=== PATIENT | male | born 1930 | race Caucasian/White ===

== ENCOUNTER 2016-12-06 17:45 | Inpatient (IN) | payer MEDICARE ==
[~2016-12-06] VITALS: Ht 175.3 cm; Wt 60.7 kg
[2016-12-06] MEDS ORDERED: ALBUTEROL 0.5% (NEB) 2.5 MG/0.5 ML AMP INH STA (18:21)
--- NOTE | 2016-12-06 18:59 | RADRPT ---
PROCEDURE: XR Chest. CLINICAL INDICATION: Chest pain. TECHNIQUE: Single frontal view. COMPARISON: None. FINDINGS: The lungs are clear. The heart size is normal. There is calcification in the aorta consistent with atherosclerosis. There are very small bilateral pleural effusions. There is no pneumothorax. IMPRESSION: 1. Atherosclerosis. 2. Very small bilateral pleural effusions. 3. Otherwise normal chest radiograph. RPTAT: QQ .Lb Son MD, MD Date Time Electronically viewed and signed by .Lb Son MD, MD on 12/06/2016 18:59 .R/
[2016-12-06 19:21] LABS: MetHgb Venous 0.3 %; Sample Type Blood venous; Venous COHb 0.6 %; Venous Fraction OxyHgb 56.4 %; Venous Total Hemglobin 14.1 g/dl
[2016-12-06] MEDS ORDERED: ACET-2047 PO (19:21)
[2016-12-06] MEDS ORDERED: ACET1TAB40 PO (19:22)
[2016-12-06] MEDS ORDERED: ASCO500C7 PO (19:24)
[2016-12-06] MEDS ORDERED: ATEN50TA PO (19:25)
[2016-12-06] MEDS ORDERED: ASPI-664 PO (19:25)
[2016-12-06] MEDS ORDERED: ATOR10TA65 PO (19:26)
[2016-12-06] MEDS ORDERED: LORA-441 PO (19:27)
[2016-12-06] MEDS ORDERED: WARF3TAB PO (19:28)
[2016-12-06] MEDS ORDERED: FLUO40CA10 PO (19:29)
[2016-12-06] MEDS ORDERED: DIGO125T6 PO (19:29)
[2016-12-06] MEDS ORDERED: HYDR-906 PO (19:29)
[2016-12-06] MEDS ORDERED: FURO-110 PO (19:30)
[2016-12-06] MEDS ORDERED: ALEN70TA30 PO (19:31)
[2016-12-06] MEDS ORDERED: LEVE250T5 PO (19:31)
[2016-12-06] MEDS ORDERED: LISI2.5T59 PO (19:33)
[2016-12-06] MEDS ORDERED: TAMS0.4C2 PO (19:34)
[2016-12-06] MEDS ORDERED: POTA20TA96 PO (19:35)
[2016-12-06] MEDS ORDERED: POLY17PO6 PO (19:35)
[2016-12-06] MEDS ORDERED: MULTI PO (19:36)
[2016-12-06] MEDS ORDERED: PANT40TA3 PO (19:36)
[2016-12-06] MEDS ORDERED: PSYL283P27 PO (19:37)
[2016-12-06 19:41] LABS: ADD SCAN DIFF NO
[2016-12-06 19:55] LABS: PT RATIO 4.5
[2016-12-06 19:56] LABS: ALBUMIN 3.4 g/dl (3.3-4.9); CHLORIDE 99 mmol/L (97-110); PARTIAL THROMBOPLASTIN TIME 47.3 Sec (25.0-35.0); POTASSIUM 3.7 mmol/L (3.5-5.1); SODIUM 141 mmol/L (135-144)
[2016-12-06 19:58] LABS: CREATININE 0.77 mg/dl (0.61-1.24)
[2016-12-06 19:59] LABS: ALANINE AMINOTRANSFERASE 27 IU/L (13-69); ALBUMIN/GLOBULIN RATIO 1.17; ALKALINE PHOSPHATASE 96 IU/L (42-121); ANION GAP 15 (8-16); ASPARTATE AMINO TRANSFERASE 21 IU/L (15-46); BILIRUBIN,INDIRECT 0.7 mg/dl (0-1.1); BILIRUBIN,TOTAL 0.7 mg/dl (0.2-1.3); BLOOD UREA NITROGEN 14 mg/dl (7-20); CALCIUM 8.8 mg/dl (8.4-10.2); CARBON DIOXIDE 31 mmol/L (21-31); GLUCOSE 101 mg/dl (70-220); TOTAL PROTEIN 6.3 g/dl (6.1-8.1)
[2016-12-06 20:02] LABS: BASOPHIL # 0.1 10^3/ul (0.0-0.1); BASOPHILS % 0.3 % (0.0-2.0); EOSINOPHILS # 0.1 10^3/ul (0.0-0.5); EOSINOPHILS % 0.5 % (0.0-7.0); HEMOGLOBIN 12.8 g/dl (14.0-18.0); LYMPHOCYTES # 0.8 10^3/ul (0.8-2.9); LYMPHOCYTES % 4.3 % (15.0-51.0); MEAN CORPUSCULAR HEMOGLOBIN 31.1 pg (29.0-33.0); MEAN CORPUSCULAR HGB CONC 32.8 g/dl (32.0-37.0); MEAN CORPUSCULAR VOLUME 94.7 fl (82.0-101.0); MEAN PLATELET VOLUME 11.3 fl (7.4-10.4); MONOCYTE # 1.1 10^3/ul (0.3-0.9); MONOCYTES % 6.3 % (0.0-11.0); NEUTROPHIL # 15.4 10^3/ul (1.6-7.5); NEUTROPHILS % 88.1 % (39.0-77.0); PLATELET COUNT 290 10^3/UL (140-415); RED BLOOD COUNT 4.12 10^6/ul (4.70-6.10); RED CELL DISTRIBUTION WIDTH 14.2 % (11.5-14.5); WHITE BLOOD COUNT 17.4 10^3/ul (4.8-10.8)
[2016-12-06 20:07] LABS: B-TYPE NATRIURETIC PEPTIDE 4810 PG/ML (0-450)
[2016-12-06 20:15] LABS: INR 6.46
[2016-12-06 20:17] LABS: TROPONIN-I < 0.010 ng/ml (0.00-0.12)
[2016-12-06] MEDS ORDERED: CEFEPIME 1GM/50 ML (PMX) 50 ML IVPB STA (20:24)
[2016-12-06] MEDS ORDERED: VANCOMYCIN 1 GM (PMX) 250 ML IVPB STA (20:24)
[2016-12-06] MEDS ORDERED: SOD CHLORIDE 0.9% 500 ML IV ONE (20:56)
[2016-12-06] MEDS ORDERED: ONDANSETRON 4 MG INJ IV PRN (21:30)
[2016-12-06] MEDS ORDERED: ACETAMINOPHEN 325 MG TAB PO PRN (21:30)
--- NOTE | 2016-12-06 21:53 | ERA ---
ER Documentation Chief Complaint Date/Time DATE: 12/06/16 TIME: 21:43 Chief Complaint Shortness of breath that started today, from SNF HPI 86-year-old male with a history of strokes, A. fib, hypertension, CHF [facility] for shortness of breath that started today. Patient states that under the left side of his ribs, he feels a pressure with associated shortness of breath when he takes a deep breath. He generally feels weak. He has an associated productive cough. He denies associated fever, chest pain, new focal weakness or numbness, leg pain or swelling. ROS All systems reviewed and are negative except as per history of present illness. Medications Home Meds Reported Medications Psyllium Husk/Aspartame (Metamucil Sugar-Free Powder) 283 Gm Powder, 1 GM PO DAILY Y for CONSTIPATION 12/06/16 Multivitamins* (Theragran*) 1 Tab Tab, 1 TAB PO DAILY, TAB 12/06/16 Pantoprazole* (Protonix*) 40 Mg Tablet.dr, 40 MG PO DAILY, TAB 12/06/16 Polyethylene Glycol* (Miralax*) 17 Gm Powd.pack, 17 GM PO DAILY, #30 PACKET 12/06/16 Potassium Chloride* (Potassium Chloride*) 20 Meq Tablet.er, 20 MEQ PO DAILY, TAB.SA 12/06/16 Tamsulosin Hcl* (Tamsulosin Hcl*) 0.4 Mg Cap.er.24h, 0.4 MG PO HS, CAP 12/06/16 Lisinopril* (Lisinopril*) 2.5 Mg Tablet, 2.5 MG PO DAILY, #30 TAB HOLD IF SBP ABOVE 110 OR HR ABOVE 60 12/06/16 Levetiracetam* (Levetiracetam*) 250 Mg Tablet, 250 MG PO BID, TAB 12/06/16 Alendronate Sodium* (Fosamax*) 70 Mg Tablet, 70 MG PO Q7D, #4 TAB ON Sundays12/06/16 Furosemide* (Lasix*) 20 Mg Tablet, 20 MG PO DAILY, TAB 12/06/16 Hydrocodone/Acetaminophen ([place]oco 5-325 Tablet) 1 Each Tablet, 1 EACH PO Q4H WHILE AWAKE Y for MODERATE PAIN LEVEL 4-6, TAB 12/06/16 Fluoxetine Hcl* (Prozac*) 40 Mg Capsule, 40 MG PO DAILY, CAP 12/06/16 Digoxin* (Lanoxin*) 0.125 Mg Tablet, 0.125 MG PO DAILY, TAB HOLD IF HR ABOVE 60 12/06/16 Warfarin Sodium* (Coumadin*) 3 Mg Tablet, 3 MG PO DAILY, TAB 12/06/16 Lorazepam* (Ativan*) 0.5 Mg Tablet, 0.5 MG PO DAILY Y for ANXIETY, #30 TAB 12/06/16 Atorvastatin Calcium (Atorvastatin Calcium) 10 Mg Tablet, 2.5 MG PO QHS, #30 TAB 12/06/16 Aspirin (Low Dose Aspirin) 81 Mg Tablet.dr, 81 MG PO DAILY, #30 TAB 12/06/16 Atenolol* (Atenolol*) 50 Mg Tablet, 50 MG PO DAILY, #30 TAB HOLD FOR SBP ABOVE 110 OR HR ABOVE 60 12/06/16 Ascorbic Acid* (Vitamin C*) 500 Mg Capsule.sa, 500 MG PO DAILY, CAP 12/06/16 Acetaminophen with Codeine (Acetaminophen-Cod #3 Tablet) 1 Each Tablet, 1 TAB PO Q6H Y for SEVERE PAIN LEVEL 7-10, #7 TAB 12/06/16 Acetaminophen* (Acetaminophen*) 650 Mg Tablet, 650 MG PO Q6H Y for PAIN, #30 TAB 12/06/16 Allergies Allergies: Coded Allergies: No Known Allergy (Unverified , 12/06/16) PMhx/Soc History of Surgery: No Anesthesia Reaction: No Hx Neurological Disorder: Yes (Multiple CVAs) Hx Respiratory Disorders: No Hx Cardiac Disorders: Yes (Afib, CHF, HTN) Hx Psychiatric Problems: No Hx Miscellaneous Medical Probl: No Hx Alcohol Use: No Hx Substance Use: No Hx Tobacco Use: Yes Smoking Status: Current every day smoker FmHx Family History: No diabetes Physical Exam Vitals Vital Signs Date Time Temp Pulse Resp B/P Pulse Ox O2 Delivery O2 Flow Rate FiO2 12/06/16 20:25 100 16 116/88 100 Nasal Cannula 2.0 12/06/16 19:48 64 18 105/46 100 Nasal Cannula 3.0 12/06/16 18:40 84 18 99 Nasal Cannula 3.0 30 12/06/16 18:32 Nasal Cannula 3 12/06/16 17:59 96.1 84 18 137/44 100 12/06/16 17:59 Nasal Cannula 2.0 Physical Exam Const: Chronically ill-appearing, no distress, nontoxic, frequent coughing Head: Atraumatic Eyes: Normal Conjunctiva ENT: Dry oral mucosa Neck: Full range of motion. No meningismus. Resp: Diminished breath sounds bilaterally, partially due to poor effort, with diffuse expiratory wheezing Cardio: Irregularly irregular rhythm, normal rate, no murmurs Abd: Soft, non tender, non distended. Normal bowel sounds Skin: No petechiae or rashes Ext: No cyanosis, or edema. Muscle atrophy in all 4 extremities. No calf tenderness Neur: Awake and alert and oriented to self, place, year only Psych: Normal Mood and Affect Result Diagram: 12/06/16 1833 12/06/16 1833 Results 24 hrs Laboratory Tests Test 12/06/16 18:21 12/06/16 18:33 Christo Test N/A Arterial Blood Date Drawn 12/06/2016 7:00:49 PM Arterial Blood Gas Puncture Site OTHER Blood Gas Actual Respiration Rate 18 Blood Gas Critical Value Read Back DR. MONGE N. Blood Gas Modality AEROSOL MASK Blood Gas Notified Time 12/06/2016 7:20:38 PM Blood Gas Notified Whom BL Blood Gas Specimen Source Blood venous Blood Gas Temperature 37.0C Carboxyhemoglobin 0.6% FiO2 45.0% Venous Blood Base Excess 3.2mmol/L Venous Blood HCO3 28.8mmol/L Venous Blood Methemoglobin 0.3% Venous Blood Oxygen Saturation 56.9mmHG Venous Blood Oxyhemoglobin 56.4% Venous Blood Total Hemoglobin 14.1g/dl Venous Blood pCO2 (Temp Corrected) 47.6mmHG Venous Blood pH 7.399 Venous Blood pO2 (Temp Corrected) 30.8mmHG Activated Partial Thromboplast Time 47.3Sec Alanine Aminotransferase (ALT/SGPT) 27IU/L Albumin 3.4g/dl Albumin/Globulin Ratio 1.17 Alkaline Phosphatase 96IU/L Anion Gap 15 Aspartate Amino Transf (AST/SGOT) 21IU/L B-Type Natriuretic Peptide 4810PG/ML Basophils # 0.110^3/ul Basophils % 0.3% Blood Urea Nitrogen 14mg/dl Calcium Level 8.8mg/dl Carbon Dioxide Level 31mmol/L Chloride Level 99mmol/L Creatinine 0.77mg/dl Direct Bilirubin 0.00mg/dl Eosinophils # 0.110^3/ul Eosinophils % 0.5% Globulin 2.90g/dl Glucose Level 101mg/dl Hematocrit 39.0% Hemoglobin 12.8g/dl INR International Normalized Ratio 6.46 Indirect Bilirubin 0.7mg/dl Lymphocytes # 0.810^3/ul Lymphocytes % 4.3% Mean Corpuscular Hemoglobin 31.1pg Mean Corpuscular Hemoglobin Concent 32.8g/dl Mean Corpuscular Volume 94.7fl Mean Platelet Volume 11.3fl Monocytes # 1.110^3/ul Monocytes % 6.3% Neutrophils # 15.410^3/ul Neutrophils % 88.1% Nucleated Red Blood Cells # 0.010^3/ul Nucleated Red Blood Cells % 0.0/100WBC Platelet Count 86915^3/UL Potassium Level 3.7mmol/L Prothrombin Time 58.0Sec Prothrombin Time Ratio 4.5 Red Blood Count 4.1210^6/ul Red Cell Distribution Width 14.2% Sodium Level 141mmol/L Total Bilirubin 0.7mg/dl Total Protein 6.3g/dl Troponin I < 0.010ng/ml White Blood Count 17.410^3/ul Current Medications Medications (Trade) Dose Ordered Sig/John Route PRN Reason Start Time Stop Time Status Last Admin Dose Admin Albuterol 5 mg 5 mg ONCE STAT INH 12/06/16 18:21 12/06/16 18:23 DC 12/06/16 18:45 Cefepime HCl 50 ml @ 100 mls/hr ONCE STAT IVPB 12/06/16 20:24 12/06/16 20:53 DC 12/06/16 20:47 Vancomycin HCl 250 ml @ 125 mls/hr ONCE STAT IVPB 12/06/16 20:24 12/06/16 22:23 12/06/16 21:24 Sodium Chloride (NS) 500 ml @ 500 mls/hr Q1H ONCE IV 12/06/16 20:56 12/06/16 21:55 12/06/16 21:09 Ondansetron HCl (Zofran Inj) 4 mg BRIDGE ORDER PRN IV NAUSEA AND/OR VOMITING 12/06/16 21:30 12/07/16 21:29 Acetaminophen (Tylenol Tab) 650 mg ER BRIDGE PRN PO MILD PAIN/FEVER 12/06/16 21:30 12/07/16 21:29 Procedures/MDM EKG: Rate/Rhythm: Atrial fibrillation at 84 bpm QRS, ST, T-waves: Right bundle branch block, left anterior fascicular block, no changes consistent w/ acute ischemia Impression: No evidence of ischemia, atrial fibrillation Patient is presenting with presentation and workup consistent with most likely bronchitis versus pneumonia. Vitals are stable and there is no evidence of severe sepsis or septic shock. There is no hypoxia on exam. He is hemodynamically stable. X-ray showed only small bilateral pleural effusions without evidence of pneumonia or CHF. Labs were notable for leukocytosis. His BNP was also elevated, however I do not suspect acute CHF. I have a lower suspicion for acute coronary syndrome or pulmonary embolism. Troponin was within normal limits. EKG did not show any acute ischemic changes. However given the patient's age and risk factors, I do not believe the patient is stable for discharge and will require observation overnight with IV antibiotics and cardiac and respiratory monitoring. Accepting Care Team: Current data and ongoing care discussed. Time: Time of admission Primary Provider: Sctorch Consulting: none Outstanding Data: blood culture Departure Diagnosis: Primary Impression: Shortness of breath Additional Impression: Bronchitis, acute, with bronchospasm Condition: Fair YARI MONGE MD Dec 06, 2016 21:53
[2016-12-06 22:13] VITALS: PULSE 80
[2016-12-06 23:06] VITALS: Ht 175.3 cm; Wt 60.7 kg
[2016-12-06 23:13] VITALS: BP 117/64; RESP 18
[2016-12-07] MEDS ORDERED: ALBUTEROL/IPRATROPIUM (NEB) 3 ML AMP HHN PRN
[2016-12-07] MEDS ORDERED: LORAZEPAM 0.5 MG TAB PO PRN (00:30)
[2016-12-07] MEDS ORDERED: HYDROCODONE/APAP (5/325) TAB PO PRN (00:30)
[2016-12-07] MEDS ORDERED: ACETAMINOPHEN 325 MG TAB PO PRN (00:30)
[2016-12-07] MEDS ORDERED: PSYLLIUM (SUGAR FREE) PACKET PO PRN (00:30)
[2016-12-07] MEDS ORDERED: ACETAMINOPHEN/CODEINE #3 TAB PO PRN (00:30)
[2016-12-07] MEDS: FUROSEMIDE 40 MG INJ IV SCH ×2 (05:20→17:05)
[2016-12-07] MEDS: PANTOPRAZOLE (EC) 40 MG TAB PO SCH (05:20)
[2016-12-07 05:50] LABS: ADD SCAN DIFF NO
[2016-12-07 06:05] LABS: BASOPHIL # 0.1 10^3/ul (0.0-0.1); BASOPHILS % 0.5 % (0.0-2.0); EOSINOPHILS # 0.2 10^3/ul (0.0-0.5); LYMPHOCYTES # 1.4 10^3/ul (0.8-2.9); LYMPHOCYTES % 13.8 % (15.0-51.0); MEAN CORPUSCULAR HEMOGLOBIN 30.6 pg (29.0-33.0); MEAN CORPUSCULAR HGB CONC 32.4 g/dl (32.0-37.0); MEAN CORPUSCULAR VOLUME 94.4 fl (82.0-101.0); MEAN PLATELET VOLUME 11.2 fl (7.4-10.4); MONOCYTE # 1.1 10^3/ul (0.3-0.9); MONOCYTES % 10.7 % (0.0-11.0); NEUTROPHIL # 7.6 10^3/ul (1.6-7.5); NEUTROPHILS % 72.6 % (39.0-77.0); PLATELET COUNT 250 10^3/UL (140-415); RED CELL DISTRIBUTION WIDTH 14.4 % (11.5-14.5); WHITE BLOOD COUNT 10.4 10^3/ul (4.8-10.8)
[2016-12-07 06:35] LABS: PROTIME 70.7 Sec (12.2-14.2); PT RATIO 5.5
[2016-12-07 06:53] LABS: ALBUMIN 2.6 g/dl (3.3-4.9)
[2016-12-07 06:54] LABS: POTASSIUM 3.8 mmol/L (3.5-5.1)
[2016-12-07 06:56] LABS: ALBUMIN/GLOBULIN RATIO 1.04; BILIRUBIN,INDIRECT 0.3 mg/dl (0-1.1); BILIRUBIN,TOTAL 0.3 mg/dl (0.2-1.3); CREATININE 0.75 mg/dl (0.61-1.24); PHOSPHORUS 2.8 mg/dl (2.5-4.9); TOTAL PROTEIN 5.1 g/dl (6.1-8.1)
[2016-12-07 06:57] LABS: CALCIUM 8.3 mg/dl (8.4-10.2); MAGNESIUM 1.9 mg/dl (1.7-2.5)
[2016-12-07 06:57] LABS: INR 8.29
[2016-12-07] MEDS: FLUOXETINE 20 MG CAP PO SCH (09:08)
[2016-12-07] MEDS: CEFEPIME 1GM/50 ML (PMX) 50 ML IVPB SCH ×2 (09:08→21:03)
[2016-12-07] MEDS: POLYETHYLENE GLYCOL 17 GM PACKET PO SCH (09:08)
[2016-12-07] MEDS: LISINOPRIL 5 MG TAB PO SCH (09:09)
[2016-12-07] MEDS: POTASSIUM CHLORIDE (SR) 20 MEQ TAB PO SCH (09:09)
[2016-12-07] MEDS: ASCORBIC ACID 500 MG TAB PO SCH (09:09)
[2016-12-07] MEDS: ATENOLOL 50 MG TAB PO SCH (09:09)
[2016-12-07] MEDS: MULTIVITAMINS THERAPEUTIC TAB PO SCH (09:09)
[2016-12-07 10:08] LABS: MODE MASK
--- NOTE | 2016-12-07 10:26 | RADRPT ---
PROCEDURE: XR Chest. CLINICAL INDICATION: Shortness of breath. TECHNIQUE: Single frontal view. COMPARISON: 12/06/2016. FINDINGS: There is mild atelectasis at the lung bases. The lungs are otherwise clear. The heart size is normal. There is calcification in the aorta consistent with atherosclerosis. There are very small bilateral pleural effusions. There is no pneumothorax. IMPRESSION: 1. Mild atelectasis at the lung bases. 2. Atherosclerosis. 3. Very small bilateral pleural effusion. RPTAT: QQ .Lb Son MD, MD Date Time Electronically viewed and signed by .Lb Son MD, MD on 12/07/2016 10:26 .R/
--- NOTE | 2016-12-07 11:07 | HP ---
DATE OF ADMISSION: 12/06/2016 CHIEF COMPLAINT: Shortness of breath. HISTORY OF PRESENT ILLNESS: This is an 86-year-old male, well known to me, with a past medical hist ory of a cerebrovascular accident with residual deficit, a history of atrial fibrillation, a history of hypertension, a history of CHF, a history of adrenal nodule, a history of abdominal aortic aneur ysm, stable, a history of seizure disorder, a history of GERD, a history of BPH, a history of dyslip idemia, a history of depression, a history of cognitive decline, who presents to [facility] from his assisted living facility due to shortness of breath. The patient was recently se en by myself at his assisted living facility, where at that point he was having complaints of diarrh ea. The patient at that time was clinically stable. Overnight the patient developed acute shortnes s of breath with a productive cough. As a result he was brought into [facility] Emergency Room for evaluation. Upon arrival to the emergency room the patient was normotensive, afebrile. He had a chest x-ray which showed no acute cardiopulmonary findings. The patient in the emergency danny m; however, had an elevated white count of 17,000. He was noted to have audible wheezing. He was s tarted on antibiotic therapy, nebulizers and admitted to med/surg for evaluation. Overnight the pat ient was stable, without any acute complaints. Upon my evaluation of the patient at this time, the patient is complaining of some mild general pain , but denies any active chest pain at this time. Denies any active bleeding. Denies any hemoptysis , hemetemesis or hematochezia. PAST MEDICAL HISTORY: As stated above, a history of CVA, a history of atrial fibrillation, a hist ory of hypertension, history of CHF, a history of seizure disorder, a history of dyslipidemia, a his tory of BPH, a history of cognitive decline, a history of depression. PAST SURGICAL HISTORY: None. ALLERGIES: NO KNOWN DRUG ALLERGIES. OUTPATIENT MEDICATIONS: Reviewed and reconciled. FAMILY HISTORY: No family history of kidney disease or heart disease. SOCIAL HISTORY: He lives at an assisted living facility. REVIEW OF SYSTEMS: A 14-point review of systems was conducted. Pertinent positives stated in the H PI, otherwise negative. PHYSICAL EXAMINATION: VITAL SIGNS: Blood pressure is 117/64, respirations 18, pulse 72, temperature 98.0. HEENT: Head is normocephalic. Pupils are reactive to light. NECK: Supple. HEART: Irregularly irregular. LUNGS: Showed diminished breath sounds at the base. ABDOMEN: Soft, nontender to palpation. No rebound or guarding. EXTREMITIES: Negative for clubbing or cyanosis. No edema. MUSCULOSKELETAL: Patient has noted ecchymoses of upper and lower extremities. NEUROLOGIC: Limited exam due to lack of patient cooperation, but noted weakness of lower extremity. The patient is alert x2. LABORATORY DATA: Shows a white count of 10.4, hemoglobin 11.0, hematocrit 34.0, platelet count 250. Sodium 140, potassium 3.8, chloride 102, BUN is 14, creatinine 0.75. The patient's troponins are negative x3. Chest x-ray as stated in the HPI. ASSESSMENT AND PLAN: This is an 86-year-old male who presents with: 1. Acute bronchitis. The patient is clinically improving. Will continue the current medical manag ement, continue IV antibiotics, continue nebulizers. Will follow up blood cultures. Will check inf luenza. Will monitor closely. Consider an ID consult. 2. Coagulopathy secondary to Coumadin. The patient's INR is 8.29. Will give the patient 1 dose of vitamin K, 5 mg, and monitor daily INR. 3. History of atrial fibrillation, currently rate controlled. Continue medical management. Coumad in is on hold due to coagulopathy. A cardiology consultation has been placed. 4. Seizure disorder. Continue Keppra. 5. History of congestive heart failure. The patient is near euvolemic on exam. Continue medical m anagement. Continue diuretic therapy. 6. History of cerebrovascular accident with residual deficit. Continue the current medical managem ent. 7. Coronary artery disease. Continue the current treatment plan. 8. Benign prostatic hypertrophy. Continue Flomax. 9. Anxiety disorder/depression. Continue Ativan. Continue Prozac. 10. Dyslipidemia. Continue statin therapy. 11. Osteoporosis. Continue Fosamax. Please note, I spent over 25 minutes of face to face time with this patient. The patient is FULL COD E. Dictated By: HECTOR JOSHUA DO NR/NTS Conf#: [id number] DID#: [id number]
[2016-12-07] MEDS ORDERED: PHYTONADIONE 10 MG/ML INJ IM ONE (12:00)
[2016-12-07] MEDS: DIGOXIN 0.125 MG TAB PO SCH (12:12)
[2016-12-07] MEDS: LEVETIRACETAM 250 MG TAB PO SCH ×2 (12:12→21:03)
[2016-12-07 14:13] LABS: ADD UMIC YES; URINE BILIRUBIN (Dip) NEGATIVE (NEGATIVE); URINE BLOOD (Dip) 1+ (NEGATIVE); URINE COLOR YELLOW (YELLOW); URINE GLUCOSE (Dip) NEGATIVE (NEGATIVE); URINE KETONES (Dip) NEGATIVE (NEGATIVE); URINE LEUKOCYTE ESTERASE (Dip) 3+ (NEGATIVE); URINE NITRITE (Dip) NEGATIVE (NEGATIVE); URINE TOTAL PROTEIN (Dip) NEGATIVE (NEGATIVE); URINE UROBILINOGEN (Dip) 0.2 E.U./dL (0.1-1.0)
[2016-12-07 14:37] LABS: BACTERIA,URINE MODERATE
[2016-12-07 16:02] LABS: PROTEIN URINE 14.6 mg/dl (0.0-9.9)
--- NOTE | 2016-12-07 16:45 | RADRPT ---
Echocardiogram Report Patient Name: JUAN CERDA Gender: Male Date: 1930 Study Date: 07-Dec-2016 Metal Tile Lather: Mlilicent Benson [facility] Location: [facility] Ref. Physician: CHAMP DUQUE Quality: Good Procedures: Transthoracic echocardiogram with complete 2D, M-Mode, and doppler examination. Indications: Atrial Fibrillation. Congestive Heart Failure. Shortness of breath. 2D/M Mode Doppler Measurement Value Normal Ranges Measurement Value Normal Ranges LVIDd 2D 4.2 3.5 - 5.6 cm AV Peak Jarad 1.2 m/sec LVIDs 2D 2.6 2.1 - 4.1 cm AV Peak PG 5.7 mmHg LVPWd 2D 1.3 0.6 - 1.1 cm LVOT Peak Jarad 0.7 m/sec IVSd 2D 1.2 0.6 - 1.1 cm LVOT Peak PG 1.9 mmHg AoR Diam 2D 2.9 2.0 - 3.7 cm TR Peak Jarad 2.5 m/sec EDV 2D 77.2 cm3 TR Peak PG 24.4 mmHg ESV 2D 16.9 cm3 RVSP 27.0 mmHg LA Dimen 2D 3.0 2.3 - 4.0 cm Findings Left Ventricle: Normal left ventricular cavity size. Mild concentric left ventricular hypertrophy. Mild left ventricular systolic dysfunction. Ejection fraction is visually estimated at 45 %. Tissue Doppler/Mitral Doppler indices are indeterminate in this study due to the presence of atrial fibrillation. These segments of the LV are hypokinetic inferior base segment. Right Ventricle: Normal right ventricular size. Normal right ventricular systolic function. Left Atrium: There is mild enlargement of left atrium. Right Atrium: There is mild enlargement of right atrium. Mitral Valve: Mitral valve leaflets appear mildly thickened. Mild mitral annular calcification. Trace mitral regurgitation. Aortic Valve: No significant aortic stenosis or insufficiency. Aortic cusps appear mildly calcified. Tricuspid Valve: Normal appearance of the tricuspid valve. Estimated peak PA systolic pressure 34 mmHg. There is moderate tricuspid regurgitation. Pulmonic Valve: Normal pulmonic valve appearance. Pericardium: Normal pericardium with no significant pericardial effusion. Aorta: Normal aortic root. IVC: Normal size and normal respiratory collapse consistent with normal right atrial pressure. Conclusions 1.Normal left ventricular cavity size. Mild concentric left ventricular hypertrophy. Mild left ventricular systolic dysfunction. Ejection fraction is visually estimated at 45 %. Tissue Doppler/Mitral Doppler indices are indeterminate in this study due to the presence of atrial fibrillation. These segments of the LV are hypokinetic inferior base segment. 2.There is mild enlargement of left atrium. 3.There is mild enlargement of right atrium. 4.Mitral valve leaflets appear mildly thickened. Mild mitral annular calcification. Trace mitral regurgitation. 5.No significant aortic stenosis or insufficiency. Aortic cusps appear mildly calcified. 6.Normal appearance of the tricuspid valve. Estimated peak PA systolic pressure 34 mmHg. There is moderate tricuspid regurgitation. Electronically Signed By: Luiz Guzman 07-Dec-2016 16:45:11 -0800 Patient Name: JUAN CERDA Study Date: 07-Dec-2016 [id number]
--- NOTE | 2016-12-07 18:56 | CONS ---
DATE OF ADMISSION: 12/06/2016 DATE OF CONSULTATION: 12/07/2016 REFERRING PHYSICIAN: Dr. Velez. REASON FOR CONSULTATION: Atrial fibrillation, congestive heart failure. CHIEF COMPLAINT: Shortness of breath, wheezing. HISTORY OF PRESENT ILLNESS: Thank you for referring to me this patient who is an extremely poor his esther. I had a discussion with Dr. Velez, staff and review of the chart. This is a pleasant 86- year-old gentleman with history of CVA, atrial fibrillation and hypertension. He was admitted with complaints of shortness of breath. The patient reports that he got short of breath over the past fe w days and has been wheezing. The patient himself said that he does not know why he is here. He pradhan s also noted to have severe coagulopathy with INR more than 8. There is also question of congestive heart failure. He has been started on IV Lasix. The patient denies any chest pain or pressure to me. Denies any palpitations, denies any fall to me. Denies any bleeding to me. PAST MEDICAL HISTORY: History of cerebrovascular accident, history of atrial fibrillation, hyperten russel, congestive heart failure, history of adrenal nodule, history of abdominal aortic aneurysm, his tory of seizure disorder, GERD, BPH, dyslipidemia, depression and cognitive decline. PAST SURGICAL HISTORY: None. ALLERGIES: NO KNOWN ALLERGY. MEDICATIONS: As per medical reconciliation, personally reviewed. FAMILY HISTORY: No reported early coronary artery disease. SOCIAL HISTORY: Lives in assisted living. Denies any active tobacco, alcohol or drug abuse to me. REVIEW OF SYSTEMS: He denied all other except for above-mentioned. However, again poor historian. PHYSICAL EXAMINATION: VITAL SIGNS: Temperature 98, heart rate of 72, blood pressure 170/64, respiration rate of 18, satur ating 97%. HEENT: Normocephalic, atraumatic. Pupils are equal. NECK: Supple, with no JVD noted. CARDIOVASCULAR: Irregularly irregular. Systolic murmur. PULMONARY: With no wheezes at this point. No rhonchi. GASTROINTESTINAL: Soft, nontender. EXTREMITIES: No significant lower extremity edema. NEUROLOGIC: Awake and alert, oriented to person and place, not date. PSYCHIATRIC: Appears to be calm and pleasant. DERMATOLOGIC: There are multiple ecchymoses. LABORATORY: Sodium 140, potassium 3.8, BUN of 14, creatinine 0.75, glucose of 87. Troponin negativ e x3, proBNP on admission was 4810. Albumin is 2.6. INR was 6.46 and 8.29 this morning. Chest x-r ay from this morning shows very small bilateral pleural effusion, otherwise lungs are clear. Echoca rdiogram was personally reviewed. It was a technically difficult study but shows ejection fraction of probably about 45% with biatrial enlargement. PA pressure was 34 mmHg. EKG shows atrial fibrill ation with right bundle branch block. ASSESSMENT AND PLAN: 1. Atrial fibrillation, chronic, on anticoagulation and heart rate control. 2. Bronchitis, possible chronic obstructive pulmonary disease 3. Severe coagulopathy. 4. Seizure disorder. 5. History of congestive heart failure. Currently appears to be stable and chronic secondary to sy stolic and diastolic dysfunction. 6. Positive history of coronary artery disease on old records. This patient is not aware of it. 7. History of benign prostatic hypertrophy, currently stable. 8. Dyslipidemia on statin. 9. Anxiety and depression, currently stable. 9. Memory impairment. RECOMMENDATIONS: Patient's heart rate and blood pressure currently under good control on the curren t regimen. Antibiotic and pulmonary care as per Dr. Velez and associates. Beta khris, statin w ill be continued. Coumadin is on hold and vitamin K has been ordered. Consider changing to other a gents such as Eliquis or Xarelto. I will discontinue the IV Lasix now and place him back on p.o. La six since he does not appear to be fluid overloaded. Monitor renal function. Reassess as needed. Dictated By: OMID ANTHONY MD AV/THEE Conf#: [id number] DID#: [id number] CC: HECTOR EVLEZ DO;*EndCC*
[2016-12-07] MEDS: TAMSULOSIN (SR) 0.4 MG CAP PO SCH (21:03)
[2016-12-07] MEDS: ATORVASTATIN 10 MG TAB PO SCH (21:03)
[2016-12-07 21:33] VITALS: BP 96/42; RESP 20
[2016-12-08 05:11] LABS: ADD SCAN DIFF NO
[2016-12-08 05:22] LABS: INR 3.69; PROTIME 37.2 Sec (12.2-14.2); PT RATIO 2.9
[2016-12-08 05:23] LABS: BASOPHIL # 0.1 10^3/ul (0.0-0.1); BASOPHILS % 0.8 % (0.0-2.0); EOSINOPHILS # 0.3 10^3/ul (0.0-0.5); EOSINOPHILS % 3.7 % (0.0-7.0); HEMATOCRIT 34.1 % (42.0-52.0); HEMOGLOBIN 11.3 g/dl (14.0-18.0); LYMPHOCYTES # 1.7 10^3/ul (0.8-2.9); LYMPHOCYTES % 18.5 % (15.0-51.0); MEAN CORPUSCULAR HGB CONC 33.1 g/dl (32.0-37.0); MEAN CORPUSCULAR VOLUME 93.4 fl (82.0-101.0); MONOCYTE # 0.9 10^3/ul (0.3-0.9); MONOCYTES % 9.5 % (0.0-11.0); NEUTROPHIL # 6.2 10^3/ul (1.6-7.5); NEUTROPHILS % 67.1 % (39.0-77.0); PLATELET COUNT 249 10^3/UL (140-415); RED BLOOD COUNT 3.65 10^6/ul (4.70-6.10); RED CELL DISTRIBUTION WIDTH 14.2 % (11.5-14.5); WHITE BLOOD COUNT 9.2 10^3/ul (4.8-10.8)
[2016-12-08 05:39] LABS: ALBUMIN 2.8 g/dl (3.3-4.9)
[2016-12-08 05:40] LABS: POTASSIUM 3.1 mmol/L (3.5-5.1)
[2016-12-08 05:42] LABS: ALBUMIN/GLOBULIN RATIO 0.96; BILIRUBIN,INDIRECT 0.4 mg/dl (0-1.1); BILIRUBIN,TOTAL 0.4 mg/dl (0.2-1.3); CREATININE 0.6 mg/dl (0.61-1.24); TOTAL PROTEIN 5.7 g/dl (6.1-8.1)
[2016-12-08 05:43] LABS: CALCIUM 8.3 mg/dl (8.4-10.2)
[2016-12-08 05:49] LABS: MAGNESIUM 1.9 mg/dl (1.7-2.5); PHOSPHORUS 2.8 mg/dl (2.5-4.9)
[2016-12-08 06:00] LABS: THYROID STIMULATING HORMONE 2.71 MIU/L (0.465-4.680)
[2016-12-08] MEDS: PANTOPRAZOLE (EC) 40 MG TAB PO SCH (06:09)
[2016-12-08 08:20] VITALS: BP 120/64; RESP 18
[2016-12-08] MEDS: FLUOXETINE 20 MG CAP PO SCH (09:05)
[2016-12-08] MEDS: ASCORBIC ACID 500 MG TAB PO SCH (09:06)
[2016-12-08] MEDS: FUROSEMIDE 20 MG TAB PO SCH (09:06)
[2016-12-08] MEDS: LISINOPRIL 5 MG TAB PO SCH (09:06)
[2016-12-08] MEDS: LEVETIRACETAM 250 MG TAB PO SCH ×2 (09:06→20:41)
[2016-12-08] MEDS: POTASSIUM CHLORIDE (SR) 20 MEQ TAB PO SCH (09:07)
[2016-12-08] MEDS: CEFEPIME 1GM/50 ML (PMX) 50 ML IVPB SCH ×2 (09:07→20:41)
[2016-12-08] MEDS: POLYETHYLENE GLYCOL 17 GM PACKET PO SCH (09:07)
[2016-12-08] MEDS: MULTIVITAMINS THERAPEUTIC TAB PO SCH (09:07)
[2016-12-08] MEDS: ATENOLOL 50 MG TAB PO SCH (09:07)
[2016-12-08] MEDS ORDERED: POTASSIUM CHLORIDE (SR) 20 MEQ TAB PO STA (11:09)
--- NOTE | 2016-12-08 11:35 | PN ---
DATE: 12/08/2016 SUBJECTIVE: The patient is stable, no acute events overnight. No fevers, chills, nausea, vomiting. No shortness breath. OBJECTIVE: VITAL SIGNS: Blood pressure is 120/64, respirations 18, pulse 72, temperature 98.6. HEENT: Head is normocephalic. NECK: Supple. HEART: Regular rate. LUNGS: Show diminished breath sounds at the bases. ABDOMEN: Soft, nontender to palpation. No rebound or guarding. EXTREMITIES: Negative for clubbing, cyanosis. No edema. DERMATOLOGIC: No rashes. MUSCULOSKELETAL: No joint effusions. NEUROLOGIC: No change in exam. MEDICATIONS: The patient's medications have been reviewed. LABORATORY DATA: Shows sodium 139, potassium 3.1, BUN 14, creatinine 0.68. White count 9.2, hemogl obin 9.3, hematocrit 34.1, platelet count 249. IMAGING: The patient's chest x-ray shows mild atelectasis at the base. ASSESSMENT AND PLAN:: 1. Sepsis secondary to acute bronchitis, Staphylococcus aureus bacteremia. The patient is currentl y on IV antibiotics. We will continue. ID consult was placed with Dr. Escamilla for evaluation. We w ill monitor closely. Follow up cultures. 2. Coagulopathy secondary to Coumadin. The patient is status post vitamin K. INR is normalizing. We will continue to monitor. 3. History of atrial fibrillation, currently rate controlled. Continue medical management. We marshall l likely change from Coumadin to Eliquis once INR is at goal. 4. Seizure disorder. Continue Keppra. 5. Hypokalemia. We will replete potassium chloride. 6. History of congestive heart failure. Currently, patient appears euvolemic on exam. Continue cu rrent medical management. 7. History of cerebrovascular accident with residual deficit. Continue current treatment plan. 8. Coronary artery disease. Continue medical management. 9. Benign prostatic hypertrophy. Continue Flomax. 10. Anxiety disorder, depression. Continue Ativan, Prozac. 11. Dyslipidemia. Continue statin therapy. 12. Osteoporosis. Continue Fosamax. Dictated By: HECTOR ANTHONY/NTS Conf#: [id number] DID#: [id number]
[2016-12-08] MEDS ORDERED: VANCOMYCIN IV PER PHARMACY XX SCH (12:30)
--- NOTE | 2016-12-08 12:40 | CONS ---
DATE OF ADMISSION: 12/06/2016 DATE OF CONSULTATION: 12/08/2016 TYPE OF CONSULTATION: Infectious Disease. REASON FOR CONSULTATION: Antibiotic management. HISTORY OF PRESENT ILLNESS: Dung Ivory is an 86-year-old male who was admitted with shortness o f breath. The patient is taken care by Dr. Velez. Past history includes: 1. Cerebrovascular accident with residual deficit. 2. Atrial fibrillation. 3. Hypertension. 4. Congestive heart failure. 5. History of adrenal nodule. 6. History of abdominal aortic aneurysm, stable. 7. History of seizure disorder. 8. GERD. 9. Benign prostatic hypertrophy. 10. Dyslipidemia. 11. Depression. 12. Cognitive decline. The patient presented to [facility] with shortness of breath. He was recently seen at the [facility] with diarrhea. He became short of breath with a productive cough. In the emergency room, he was afebrile. Chest x-ray did not show any acute cardiopulmonary findings. His white cou nt was elevated on admission and it was 17,000. He had audible wheezing, was started on antibiotic therapy, nebulizers and was admitted to medical/surgical for evaluation. On admission, his white co unt is 10.4, H and H of 11 and 34, platelet count 250,000. BUN and creatinine 14/0.75. PAST MEDICAL HISTORY: Operations: None. FAMILY HISTORY: Noncontributory. SOCIAL HISTORY: Does not smoke, drink or abuse drugs. ALLERGIES: NONE TO PENICILLIN, SULFA OR FOODS. MEDICATIONS: Per chart. REVIEW OF SYSTEMS: As per HPI. PHYSICAL EXAMINATION: GENERAL: The patient is a well-developed, well-nourished male who is alert, responsive, in no acute distress. VITAL SIGNS: Stable. He is afebrile. SKIN: Without generalized rash. HEENT: Within normal limits. NECK: Supple. LYMPH NODES: None palpable. CHEST: Decreased breath sounds at the bases. HEART: Irregularly irregular rhythm. ABDOMEN: Soft, nontender, without organosplenomegaly or masses. EXTREMITIES: Without cyanosis, clubbing, or edema. RECTAL AND GENITAL: Deferred. NEUROLOGIC: The patient has lack of cooperation. He has weakness in the lower extremities secondar y to previous stroke. IMPRESSION AND PLAN: Acute bronchitis. His blood cultures grew out staph species and gram-positive cocci in clusters. His influenza A and B were negative. His MRSA screen was positive. The patien t is on cefepime. Chest x-ray shows very small bilateral pleural effusions. The patient is on IV a ntibiotics. We are going to repeat blood cultures and start him on vancomycin if that was not alrea renee done. We will treat him for acute bronchitis and also for bacteremia. I will dictate my finding s to Dr. Velez. Dictated By: SUZIE KING MD, JD/THEE Conf#: [id number] DID#: [id number]
[2016-12-08] MEDS: DIGOXIN 0.125 MG TAB PO SCH (13:13)
[2016-12-08] MEDS: MUPIROCIN 2% 22 GM OINT TOP SCH ×2 (14:15→20:41)
[2016-12-08] MEDS ORDERED: VANCOMYCIN 1.25 GM in SOD CHLORIDE 0.9% 250 ML IVPB SCH (15:00)
[2016-12-08] MEDS: ATORVASTATIN 10 MG TAB PO SCH (20:41)
[2016-12-08] MEDS: TAMSULOSIN (SR) 0.4 MG CAP PO SCH (20:41)
[2016-12-08 21:39] VITALS: BP 120/56; RESP 20
[2016-12-09 06:30] LABS: INR 1.49; PROTIME 18.1 Sec (12.2-14.2); PT RATIO 1.4
[2016-12-09 06:35] LABS: POTASSIUM 3.5 mmol/L (3.5-5.1)
[2016-12-09 06:37] LABS: CREATININE 0.58 mg/dl (0.61-1.24)
[2016-12-09 06:38] LABS: CALCIUM 8.4 mg/dl (8.4-10.2); PHOSPHORUS 2.4 mg/dl (2.5-4.9)
[2016-12-09 06:39] LABS: MAGNESIUM 1.9 mg/dl (1.7-2.5)
[2016-12-09] MEDS: PANTOPRAZOLE (EC) 40 MG TAB PO SCH (06:42)
[2016-12-09] MEDS ORDERED: ALENDRONATE 70 MG TAB PO SCH (07:30)
[2016-12-09 08:58] VITALS: BP 108/52; RESP 18
[2016-12-09] MEDS: MULTIVITAMINS THERAPEUTIC TAB PO SCH (09:25)
[2016-12-09] MEDS: CEFEPIME 1GM/50 ML (PMX) 50 ML IVPB SCH ×2 (09:25→21:02)
[2016-12-09] MEDS: POLYETHYLENE GLYCOL 17 GM PACKET PO SCH (09:25)
[2016-12-09] MEDS: POTASSIUM CHLORIDE (SR) 20 MEQ TAB PO SCH (09:25)
[2016-12-09] MEDS: ASCORBIC ACID 500 MG TAB PO SCH (09:25)
[2016-12-09] MEDS: LEVETIRACETAM 250 MG TAB PO SCH ×2 (09:25→21:03)
[2016-12-09] MEDS: ATENOLOL 50 MG TAB PO SCH (09:26)
[2016-12-09] MEDS: LISINOPRIL 5 MG TAB PO SCH (09:26)
[2016-12-09] MEDS: FUROSEMIDE 20 MG TAB PO SCH (09:26)
[2016-12-09] MEDS: FLUOXETINE 20 MG CAP PO SCH (09:26)
[2016-12-09] MEDS: MUPIROCIN 2% 22 GM OINT TOP SCH ×2 (11:45→21:04)
[2016-12-09] MEDS: VANCOMYCIN 750 MG in SOD CHLORIDE 0.9% 150 ML IVPB SCH (11:46)
[2016-12-09] MEDS: APIXABAN 5 MG TABLET PO SCH ×2 (11:46→21:02)
[2016-12-09] MEDS ORDERED: POTASSIUM CHLORIDE (SR) 20 MEQ TAB PO STA (12:45)
--- NOTE | 2016-12-09 12:46 | CONS ---
Date/Time of Note Date/Time of Note DATE: 12/09/16 TIME: 12:43 Assessment/Plan Assessment/Plan Additional Assessment/Plan Bronchitis SIRS Acute decompensated systolic congestive heart failure, improved Cardiomyopathy with ejection fraction 45% Atrial fibrillation -Patient appears near euvolemic, continue maintenance diuretics. Supplement potassium to maintain above 4.0 magnesium above 2.0. Continue JOSÉ LUIS inhibitor and beta-khris as blood pressure and renal function permits. Currently on anticoagulation secondary to atrial fibrillation. Dr Guzman to resume care 12/10/2016 Consultation Date/Type/Reason Admit Date/Time Dec 08, 2016 at 11:12 Initial Consult Date Type of Consultation: cv 24 HR Interval Summary Free Text/Dictation Shortness of breath is much better, denies chest pain or palpitations Exam/Review of Systems Vital Signs Vitals Vital Signs Date Time Temp Pulse Resp B/P Pulse Ox O2 Delivery O2 Flow Rate FiO2 12/09/16 08:58 98.6 81 18 108/52 98 12/09/16 08:00 Nasal Cannula 2.0 12/06/16 18:40 30 Intake and Output 12/08/16 12/08/16 12/09/16 15:00 23:00 07:00 Intake Total 50 ml 1340 ml 840 ml Output Total 300 ml 250 ml Balance 50 ml 1040 ml 590 ml Exam No apparent distress Constitutional: alert, oriented Head: normocephalic Neck: supple Respiratory: other (Coarse breath sounds bilaterally, no wheezing) Cardiovascular: irregular rhythm, other (S1-S2) Gastrointestinal: bowel sounds, non-tender, other (No guarding), soft Extremities: edema (Trace) Results Result Diagram: 12/08/16 0415 12/09/16 0520 Results 24 hrs Laboratory Tests Test 12/09/16 05:20 Anion Gap 12 Blood Urea Nitrogen 16 Calcium Level 8.4 Carbon Dioxide Level 28 Chloride Level 103 Creatinine 0.58 L Glucose Level 78 INR International Normalized Ratio 1.49 Magnesium Level 1.9 Phosphorus Level 2.4 L Potassium Level 3.5 Prothrombin Time 18.1 #H Prothrombin Time Ratio 1.4 Sodium Level 139 Medications Medications Current Medications Cefepime HCl (Maxipime 1gm/50 ml (Pmx)) 50 ml @ 100 mls/hr Q12 IVPB Last administered on 12/09/16t 09:25; Admin Dose 100 MLS/HR; Start 12/07/16 at 09:00 Acetaminophen/ Codeine Phosphate (Tylenol No.3) 1 tab Q6H PRN PO SEVERE PAIN LEVEL 7-10; Start 12/07/16 at 00:30 Acetaminophen (Tylenol Tab) 650 mg Q6H PRN PO PAIN; Start 12/07/16 at 00:30 Alendronate Sodium (Fosamax) 70 mg Carvajal@0730 PO Last administered on 12/09/16 08 :46; Admin Dose 70 MG; Start 12/09/16 at 07:30 Ascorbic Acid (Vitamin C) 500 mg DAILY PO Last administered on 12/09/16 09:25 ; Admin Dose 500 MG; Start 12/07/16 at 09:00 Atenolol (Tenormin) 50 mg DAILY PO Last administered on 12/09/16 09:26; Admin Dose 50 MG; Start 12/07/16 at 09:00 Atorvastatin Calcium (Lipitor) 2.5 mg QHS PO Last administered on 12/08/16 20: 41; Admin Dose 2.5 MG; Start 12/07/16 at 21:00 Digoxin (Digoxin) 0.125 mg DAILY@13 PO Last administered on 12/08/16 13:13; Admin Dose 0.125 MG; Start 12/07/16 at 13:00 Fluoxetine HCl (Prozac) 40 mg DAILY PO Last administered on 12/09/16 09:26; Admin Dose 40 MG; Start 12/07/16 at 09:00 Levetiracetam (Keppra) 250 mg BID PO Last administered on 12/09/16 09:25; Admin Dose 250 MG; Start 12/07/16 at 09:00 Lisinopril (Zestril) 2.5 mg DAILY PO Last administered on 12/09/16 09:26; Admin Dose 2.5 MG; Start 12/07/16 at 09:00 Lorazepam (Ativan) 0.5 mg DAILY PRN PO ANXIETY; Start 12/07/16 at 00:30 Multivitamins Therapeutic (Theragran) 1 tab DAILY PO Last administered on 09:25; Admin Dose 1 TAB; Start 12/07/16 at 09:00 Pantoprazole (Protonix Tab) 40 mg DAILY@06 PO Last administered on 12/09/16 06 :42; Admin Dose 40 MG; Start 12/07/16 at 06:00 Polyethylene Glycol (Miralax) 17 gm DAILY PO Last administered on 12/09/16 09: 25; Admin Dose 17 GM; Start 12/07/16 at 09:00 Potassium Chloride (Klor-Con 20) 20 meq DAILY PO Last administered on 09:25; Admin Dose 20 MEQ; Start 12/07/16 at 09:00 Tamsulosin HCl (Flomax) 0.4 mg HS PO Last administered on 12/08/16 20:41; Admin Dose 0.4 MG; Start 12/07/16 at 21:00 Psyllium Hydrophilic Mucilloid (Metamucil (Sugar Free)) 1 pkt DAILY PRN PO CONSTIPATION; Start 12/07/16 at 00:30 Furosemide (Lasix) 20 mg DAILY PO Last administered on 12/09/16 09:26; Admin Dose 20 MG; Start 12/08/16 at 09:00 Mupirocin 1 applic 1 applic BID TOP Last administered on 12/09/16 11:45; Admin Dose 1 APPLIC; Start 12/08/16 at 12:30; Stop 12/14/16 at 21:01 Vancomycin HCl/ Sodium Chloride (Vancocin/NS) 150 ml @ 75 mls/hr Q12H IVPB Last administered on 12/09/16 11:46; Admin Dose 75 MLS/HR; Start 12/09/16 at 12 :00 Apixaban (Eliquis) 2.5 mg BID PO Last administered on 12/09/16 11:46; Admin Dose 2.5 MG; Start 12/09/16 at 11:30 Young Agarwal DO Dec 09, 2016 12:46
[2016-12-09] MEDS: DIGOXIN 0.125 MG TAB PO SCH (13:00)
--- NOTE | 2016-12-09 14:13 | PN ---
DATE: SUBJECTIVE: The patient is stable. No acute events overnight. No fevers, chills, nausea, vomiting . OBJECTIVE: VITAL SIGNS: Blood pressure 108/52, respiration 18, pulse 71, temperature 98.6. HEENT: Head is normocephalic. NECK: Supple. HEART: Regular rate. LUNGS: Show diminished breath sounds at the base. ABDOMEN: Soft, nontender to palpation, without rebound or guarding. EXTREMITIES: Negative for clubbing, cyanosis. No edema. DERMATOLOGIC: No rashes. MUSCULOSKELETAL: No joint effusions. NEUROLOGIC: No change in exam. MEDICATIONS: The patient's medications have been reviewed. LABORATORY DATA: White count 9.2, hemoglobin 9.3, hematocrit 34.1, platelet count 241. Sodium 139, potassium 3.5, BUN 16, creatinine 0.58, phosphorus 2.4. ASSESSMENT AND PLAN: 1. Sepsis secondary to bronchitis and bacteremia. Patient clinically improving. Continue current antibiotic regimen. 2. Coagulopathy, resolved. 3. Atrial fibrillation, currently controlled. Continue medical management. Will start the patient on Eliquis 2.5 mg p.o. b.i.d. 4. Seizure disorder. Continue Keppra. 5. Hyperkalemia, resolved. 6. History of congestive heart failure. Continue current medical management. 7. History of cerebrovascular accident with residual deficit. Continue current treatment plan. 8. Coronary artery disease. Continue medical management. 9. Benign prostatic hypertrophy. Continue Flomax. 10. Anxiety disorder and depression. Continue Ativan and Prozac. 11. Dyslipidemia. Continue statin therapy. 12. Osteoporosis. Continue Fosamax. Dictated By: HECTOR ANTHONY/THEE Conf#: [id number] DID#: [id number]
[2016-12-09] MEDS ORDERED: MAGNESIUM SULFATE 2 GM/50 ML 50 ML IVPB ONE (14:15)
[2016-12-09 20:00] VITALS: BP 115/53; RESP 20
[2016-12-09] MEDS: TAMSULOSIN (SR) 0.4 MG CAP PO SCH (21:03)
[2016-12-09] MEDS: ATORVASTATIN 10 MG TAB PO SCH (21:03)
[2016-12-10] MEDS: VANCOMYCIN 750 MG in SOD CHLORIDE 0.9% 150 ML IVPB SCH ×2 (00:05→12:21)
[2016-12-10] MEDS: PANTOPRAZOLE (EC) 40 MG TAB PO SCH (05:24)
[2016-12-10 08:30] VITALS: BP 117/59; RESP 18
[2016-12-10] MEDS: POLYETHYLENE GLYCOL 17 GM PACKET PO SCH (09:57)
[2016-12-10] MEDS: POTASSIUM CHLORIDE (SR) 20 MEQ TAB PO SCH (09:57)
[2016-12-10] MEDS: FLUOXETINE 20 MG CAP PO SCH (09:57)
[2016-12-10] MEDS: APIXABAN 5 MG TABLET PO SCH ×2 (09:57→20:41)
[2016-12-10] MEDS: ASCORBIC ACID 500 MG TAB PO SCH (09:57)
[2016-12-10] MEDS: MULTIVITAMINS THERAPEUTIC TAB PO SCH (09:57)
[2016-12-10] MEDS: FUROSEMIDE 20 MG TAB PO SCH (09:58)
[2016-12-10] MEDS: LEVETIRACETAM 250 MG TAB PO SCH ×2 (09:58→20:40)
[2016-12-10] MEDS: ATENOLOL 50 MG TAB PO SCH (09:59)
[2016-12-10] MEDS: LISINOPRIL 5 MG TAB PO SCH (10:02)
[2016-12-10] MEDS: CEFEPIME 1GM/50 ML (PMX) 50 ML IVPB SCH ×2 (10:02→20:42)
[2016-12-10] MEDS: MUPIROCIN 2% 22 GM OINT TOP SCH ×2 (10:06→20:40)
[2016-12-10] MEDS: DIGOXIN 0.125 MG TAB PO SCH (12:24)
--- NOTE | 2016-12-10 12:49 | PN ---
DATE: 12/10/2016 SUBJECTIVE: The patient is stable, no acute events overnight. No fevers, chills, nausea/vomiting. VITAL SIGNS: Blood pressures 117/59, respiration 18, pulse 76, temperature 97.9. HEENT: Head is normocephalic. NECK: Supple. HEART: Regular rate. LUNGS: Show diminished breath sounds at base. ABDOMEN: Soft, nontender to palpation without rebound or guarding. EXTREMITIES: Negative for clubbing, cyanosis, no edema. DERMATOLOGIC: No rashes. MUSCULOSKELETAL: No joint effusions. NEUROLOGIC: No change in exam. MEDICATIONS: The patient's medications have been reviewed. LABORATORY DATA: Have been reviewed. No new labs. ASSESSMENT AND PLAN: 1. Sepsis secondary to bronchitis and bacteremia. The patient clinically improving. Continue curr ent antibiotic regimen. 2. Atrial fibrillation, currently rate controlled. Continue medical management. Continue Eliquis 2.5 mg b.i.d. 3. Seizure disorder. Continue Keppra. 4. History of congestive heart failure. Continue current medical management. 5. History of cerebrovascular accident with residual deficit. Continue current treatment. 6. Coronary artery disease. Continue current medical management. 7. Benign prostatic hypertrophy. Continue Flomax. 8. Anxiety disorder, depression. Continue Ativan and Prozac. 9. Dyslipidemia. Continue statin therapy. 10. History of osteoporosis. Dictated By: HECTOR ANTHONY/THEE Conf#: [id number] DID#: [id number]
[2016-12-10 15:26] LABS: MICROALBUMIN 5.3 mg/dL
--- NOTE | 2016-12-10 16:56 | PN ---
DATE: 12/10/2016 INFECTIOUS DISEASE PROGRESS NOTE SUBJECTIVE: No acute events overnight. The patient is lying comfortably in bed, no fevers. No labs this morning. ANTIMICROBIALS: He is on vancomycin and cefepime day #4. INDWELLINGS: Mejia catheter. PHYSICAL EXAMINATION: GENERAL: This is a well-developed, fragile, elderly man who is lying comfortably in bed. HEENT: Head atraumatic, normocephalic. Sclerae anicteric. Buccal mucosa dry. NECK: Supple, trachea midline. CHEST: Rise symmetrical. Breath sounds diminished to bases. HEART: S1, S2. ABDOMEN: Soft. Bowel tones present. EXTREMITIES: No cyanosis. ASSESSMENT: 1. Status post sepsis. 2. Acute bronchitis. 3. Coagulase-negative staph bacteremia consistent with contaminant. 4. Methicillin-resistant Staphylococcus aureus nares colonization. 5. History of congestive heart failure and atrial fibrillation. 6. History of cerebrovascular accident. PLAN: The patient remains stable. Continue present care, antibiotics. Anticipate discharge on Lev aquin, doxycycline and topical Bactroban to nares for 5 more days. Dictated By: EBONI PEDRO ABRASIVE BAND WINDER for SUZIE KING MD NI/NTS Conf#: [id number] DID#: [id number]
--- NOTE | 2016-12-10 20:13 | PN ---
DATE: 12/10/2016 CARDIOLOGY FOLLOWUP SUBJECTIVE: Discussed with the staff. The patient with no chest pain or pressure. No palpitation. Wants to go home. No bleeding reported. MEDICATIONS: Reviewed as per medical reconciliation, personally reviewed. PHYSICAL EXAMINATION: VITAL SIGNS: Temperature 97.9, heart rate of 76, blood pressure 117/59, respiratory rate 18. HEENT: Normocephalic, atraumatic. Pupils are equal. CARDIOVASCULAR: Irregularly irregular. Systolic murmur. PULMONARY: With no wheezes, no rhonchi. GASTROINTESTINAL: Soft, nontender. EXTREMITIES: No significant lower extremity edema. NEUROLOGIC: Awake, responds appropriately. PSYCHIATRIC: Appeared to be calm and pleasant. LABORATORY: Sodium 139, potassium 3.5, BUN of 16, creatinine 0.58, glucose of 78. Mag is 1.9. ASSESSMENT AND PLAN: 1. Atrial fibrillation, chronic. Heart rate under good control. 2. Bronchitis/possible chronic obstructive pulmonary disease. 3. Coagulopathy, improved. 4. History of seizure disorder. 5. History of congestive heart failure, currently appears to be stable. 6. Dyslipidemia. 7. History of memory impairment. RECOMMENDATIONS: The patient's echo has shown ejection fraction of about 45%. We will continue wit h the current cardiac care. Discharge planning is in process. Eliquis will be continued and Coumad in has been discontinued. Dictated By: OMID ANTHONY MD AV/THEE Conf#: [id number] DID#: [id number] CC: HECTOR JOSHUA DO; CHAMP DUQUE MD;*End*
[2016-12-10] MEDS: ATORVASTATIN 10 MG TAB PO SCH (20:40)
[2016-12-10] MEDS: TAMSULOSIN (SR) 0.4 MG CAP PO SCH (20:42)
[2016-12-10 21:27] VITALS: BP 117/59; RESP 19
[2016-12-11] MEDS: VANCOMYCIN 750 MG in SOD CHLORIDE 0.9% 150 ML IVPB SCH ×2 (00:32→12:57)
[2016-12-11] MEDS: PANTOPRAZOLE (EC) 40 MG TAB PO SCH (05:18)
[2016-12-11 05:47] LABS: ADD SCAN DIFF NO
[2016-12-11 05:52] LABS: BASOPHIL # 0.1 10^3/ul (0.0-0.1); BASOPHILS % 0.8 % (0.0-2.0); EOSINOPHILS # 0.5 10^3/ul (0.0-0.5); EOSINOPHILS % 4.4 % (0.0-7.0); HEMATOCRIT 34.6 % (42.0-52.0); HEMOGLOBIN 11.4 g/dl (14.0-18.0); LYMPHOCYTES # 1.6 10^3/ul (0.8-2.9); LYMPHOCYTES % 14.8 % (15.0-51.0); MEAN CORPUSCULAR HEMOGLOBIN 31.2 pg (29.0-33.0); MEAN CORPUSCULAR HGB CONC 32.9 g/dl (32.0-37.0); MEAN CORPUSCULAR VOLUME 94.8 fl (82.0-101.0); MONOCYTE # 0.9 10^3/ul (0.3-0.9); MONOCYTES % 8.5 % (0.0-11.0); NEUTROPHIL # 7.6 10^3/ul (1.6-7.5); NEUTROPHILS % 71.2 % (39.0-77.0); PLATELET COUNT 251 10^3/UL (140-415); RED BLOOD COUNT 3.65 10^6/ul (4.70-6.10); WHITE BLOOD COUNT 10.6 10^3/ul (4.8-10.8)
[2016-12-11 06:14] LABS: POTASSIUM 3.8 mmol/L (3.5-5.1)
[2016-12-11 06:17] LABS: CALCIUM 8.5 mg/dl (8.4-10.2); CREATININE 0.56 mg/dl (0.61-1.24); PHOSPHORUS 2.3 mg/dl (2.5-4.9)
[2016-12-11 06:18] LABS: MAGNESIUM 1.9 mg/dl (1.7-2.5)
[2016-12-11 08:08] VITALS: BP 126/58; RESP 18
[2016-12-11] MEDS: CEFEPIME 1GM/50 ML (PMX) 50 ML IVPB SCH (09:26)
[2016-12-11] MEDS: ASCORBIC ACID 500 MG TAB PO SCH (09:27)
[2016-12-11] MEDS: LEVETIRACETAM 250 MG TAB PO SCH (09:27)
[2016-12-11] MEDS: POTASSIUM CHLORIDE (SR) 20 MEQ TAB PO SCH (09:27)
[2016-12-11] MEDS: MULTIVITAMINS THERAPEUTIC TAB PO SCH (09:27)
[2016-12-11] MEDS: APIXABAN 5 MG TABLET PO SCH (09:31)
[2016-12-11] MEDS: FLUOXETINE 20 MG CAP PO SCH (09:31)
[2016-12-11] MEDS: FUROSEMIDE 20 MG TAB PO SCH (09:31)
[2016-12-11] MEDS: POLYETHYLENE GLYCOL 17 GM PACKET PO SCH (09:32)
[2016-12-11] MEDS: MUPIROCIN 2% 22 GM OINT TOP SCH (09:33)
[2016-12-11] MEDS ORDERED: NEUTRA-PHOS 250 MG PACKET PO ONE (10:00)
--- NOTE | 2016-12-11 11:47 | DS ---
DATE OF ADMISSION: 12/08/2016 DATE OF DISCHARGE: 12/11/2016 HOSPITAL COURSE: This is an 86-year-old male well known to me with past medical history of cerebrov ascular accident with residual deficits, history of paroxysmal atrial fibrillation, history of hyper tension, CHF, history of adrenal nodule, history of aortic aneurysm, history of seizure disorder, GE RD, BPH, dyslipidemia, depression, cognitive decline who presented to [facility] an assisted living facility with shortness of breath. The patient was subsequently admitted due to acute bronchitis and sepsis. In terms of the patient's underlying sepsis, the patient's blood c ultures grew out coagulase-negative staph. The patient was treated with IV antibiotics and nebulize r therapy. The patient had clinical improvement and has currently received 5 days of IV antibiotics and we will continue for another 7 days of oral antibiotics in the outpatient setting. The patient was also noted to be coagulopathic on admission with INR of 8.0. The patient was corrected and was switched from Coumadin to Eliquis, which he is tolerating well and will now be continued in the out patient setting. The patient was also seen by ice cream machine operator, Dr. Guzman, for his underlying atrial fi brillation and has been medically managed and rate controlled. The patient also has history of CHF and has been euvolemic during the hospital course. The patient's other medical problems including B PH, coronary artery disease, anxiety disorder, and dyslipidemia have been stable. Currently, at thi s time, the patient will be discharged back to an assisted living facility where he will continue an tibiotic therapy and continue care. At the time of discharge, the patient is stable, in no acute distress. FINAL DIAGNOSES: 1. Sepsis secondary to bronchitis, bacteremia, resolving. 2. Atrial fibrillation. 3. Seizure disorder. 4. History of congestive heart failure. 5. History of cerebrovascular accident. 6. Coronary artery disease. 7. Benign prostatic hypertrophy. 8. Anxiety disorder. 9. Dyslipidemia. 10. History of osteoporosis. CONDITION ON DISCHARGE: At the time of discharge, the patient is stable, no acute distress. FINAL MEDICATIONS: The patient will be on: 1. Levaquin 500 mg daily for 7 days. 2. Doxycycline 100 mg daily for 7 days. 3. Bactroban apply to nares for 7 days. 4. Eliquis 2.5 mg p.o. b.i.d. The patient will resume home medications of: 1. Tylenol. 2. Fosamax. 3. Vitamin C. 4. Aspirin. 5. Atenolol. 6. Atorvastatin. 7. Digoxin. 8. Lasix. 9. Prozac. 10. Keppra. 11. Lisinopril. 12. Lorazepam. 13. ____. Please note I spent over 40 minutes of time preparing the patient's discharge. Dictated By: HECTOR ANTHONY/THEE Conf#: [id number] DID#: [id number]
[2016-12-11] MEDS: DIGOXIN 0.125 MG TAB PO SCH (13:03)
[2016-12-11] MEDS: LISINOPRIL 5 MG TAB PO SCH (13:04)
[2016-12-11] MEDS: ATENOLOL 50 MG TAB PO SCH (13:04)
--- NOTE | 2016-12-11 13:13 | CONS ---
Date/Time of Note Date/Time of Note DATE: 12/11/16 TIME: 13:12 Assessment/Plan Assessment/Plan Chief Complaint/Hosp Course SUBJECTIVE: No acute events overnight. The patient is lying comfortably in bed , no fevers. No labs this morning. ANTIMICROBIALS: He is on vancomycin and cefepime day #5 INDWELLINGS: Mejia catheter. PHYSICAL EXAMINATION: GENERAL: This is a well-developed, fragile, elderly man who is lying comfortably in bed. HEENT: Head atraumatic, normocephalic. Sclerae anicteric. Buccal mucosa dry. NECK: Supple, trachea midline. CHEST: Rise symmetrical. Breath sounds diminished to bases. HEART: S1, S2. ABDOMEN: Soft. Bowel tones present. EXTREMITIES: No cyanosis. ASSESSMENT: 1. Status post sepsis. 2. Acute bronchitis. 3. Coagulase-negative staph bacteremia consistent with contaminant. 4. Methicillin-resistant Staphylococcus aureus nares colonization. 5. History of congestive heart failure and atrial fibrillation. 6. History of cerebrovascular accident. PLAN: The patient remains stable. Continue present care, antibiotics. Anticipate discharge on Levaquin, doxycycline and topical Bactroban to nares for 4 more days. staff Problems: Consultation Date/Type/Reason Admit Date/Time Dec 08, 2016 at 11:12 Initial Consult Date Type of Consultation: ID Exam/Review of Systems Vital Signs Vitals Vital Signs Date Time Temp Pulse Resp B/P Pulse Ox O2 Delivery O2 Flow Rate FiO2 12/11/16 08:08 98.1 73 18 126/58 96 12/09/16 08:00 Nasal Cannula 2.0 Intake and Output 12/10/16 12/10/16 12/11/16 15:00 23:00 07:00 Intake Total 200 ml 760 ml 630 ml Output Total 540 ml 750 ml Balance 200 ml 220 ml -120 ml Results Result Diagram: 12/11/16 0420 12/11/16 0420 Results 24 hrs Laboratory Tests Test 12/10/16 23:10 12/11/16 04:20 Vancomycin Level Trough 13.2 Anion Gap 12 Basophils # 0.1 Basophils % 0.8 Blood Urea Nitrogen 15 Calcium Level 8.5 Carbon Dioxide Level 31 Chloride Level 100 Creatinine 0.56 L Eosinophils # 0.5 Eosinophils % 4.4 Glucose Level 72 Hematocrit 34.6 L Hemoglobin 11.4 L Lymphocytes # 1.6 Lymphocytes % 14.8 L Magnesium Level 1.9 Mean Corpuscular Hemoglobin 31.2 Mean Corpuscular Hemoglobin Concent 32.9 Mean Corpuscular Volume 94.8 Mean Platelet Volume 11.0 H Monocytes # 0.9 Monocytes % 8.5 Neutrophils # 7.6 H Neutrophils % 71.2 Nucleated Red Blood Cells # 0.0 Nucleated Red Blood Cells % 0.0 Phosphorus Level 2.3 L Platelet Count 251 Potassium Level 3.8 Red Blood Count 3.65 L Red Cell Distribution Width 14.0 Sodium Level 139 White Blood Count 10.6 Medications Medications Current Medications Cefepime HCl (Maxipime 1gm/50 ml (Pmx)) 50 ml @ 100 mls/hr Q12 IVPB Last administered on 12/11/16 09:26; Admin Dose 100 MLS/HR; Start 12/07/16 at 09:00 Acetaminophen/ Codeine Phosphate (Tylenol No.3) 1 tab Q6H PRN PO SEVERE PAIN LEVEL 7-10; Start 12/07/16 at 00:30 Acetaminophen (Tylenol Tab) 650 mg Q6H PRN PO PAIN; Start 12/07/16 at 00:30 Alendronate Sodium (Fosamax) 70 mg Carvajal@0730 PO Last administered on 12/09/16 08 :46; Admin Dose 70 MG; Start 12/09/16 at 07:30 Ascorbic Acid (Vitamin C) 500 mg DAILY PO Last administered on 12/11/16 09:27 ; Admin Dose 500 MG; Start 12/07/16 at 09:00 Atenolol (Tenormin) 50 mg DAILY PO Last administered on 12/10/16 09:59; Admin Dose 50 MG; Start 12/07/16 at 09:00 Atorvastatin Calcium (Lipitor) 2.5 mg QHS PO Last administered on 12/10/16 20: 40; Admin Dose 2.5 MG; Start 12/07/16 at 21:00 Digoxin (Digoxin) 0.125 mg DAILY@13 PO Last administered on 12/11/16 13:03; Admin Dose 0.125 MG; Start 12/07/16 at 13:00 Fluoxetine HCl (Prozac) 40 mg DAILY PO Last administered on 12/11/16 09:31; Admin Dose 40 MG; Start 12/07/16 at 09:00 Levetiracetam (Keppra) 250 mg BID PO Last administered on 12/11/16 09:27; Admin Dose 250 MG; Start 12/07/16 at 09:00 Lisinopril (Zestril) 2.5 mg DAILY PO Last administered on 12/10/16 10:02; Admin Dose 2.5 MG; Start 12/07/16 at 09:00 Lorazepam (Ativan) 0.5 mg DAILY PRN PO ANXIETY; Start 12/07/16 at 00:30 Multivitamins Therapeutic (Theragran) 1 tab DAILY PO Last administered on 09:27; Admin Dose 1 TAB; Start 12/07/16 at 09:00 Pantoprazole (Protonix Tab) 40 mg DAILY@06 PO Last administered on 12/11/16 05 :18; Admin Dose 40 MG; Start 12/07/16 at 06:00 Polyethylene Glycol (Miralax) 17 gm DAILY PO Last administered on 12/11/16 09: 32; Admin Dose 17 GM; Start 12/07/16 at 09:00 Potassium Chloride (Klor-Con 20) 20 meq DAILY PO Last administered on 09:27; Admin Dose 20 MEQ; Start 12/07/16 at 09:00 Tamsulosin HCl (Flomax) 0.4 mg HS PO Last administered on 12/10/16 20:42; Admin Dose 0.4 MG; Start 12/07/16 at 21:00 Psyllium Hydrophilic Mucilloid (Metamucil (Sugar Free)) 1 pkt DAILY PRN PO CONSTIPATION; Start 12/07/16 at 00:30 Furosemide (Lasix) 20 mg DAILY PO Last administered on 12/11/16 09:31; Admin Dose 20 MG; Start 12/08/16 at 09:00 Mupirocin 1 applic 1 applic BID TOP Last administered on 12/11/16 09:33; Admin Dose 1 APPLIC; Start 12/08/16 at 12:30; Stop 12/14/16 at 21:01 Vancomycin HCl/ Sodium Chloride (Vancocin/NS) 150 ml @ 75 mls/hr Q12H IVPB Last administered on 12/11/16 12:57; Admin Dose 75 MLS/HR; Start 12/09/16 at 12 :00 Apixaban (Eliquis) 2.5 mg BID PO Last administered on 12/11/16t 09:31; Admin Dose 2.5 MG; Start 12/09/16 at 11:30 EBONI PEDRO NP Dec 11, 2016 13:12
--- NOTE | 2016-12-11 17:32 | PN ---
DATE: CARDIOLOGY FOLLOWUP SUBJECTIVE: The patient with no chest pain or pressure. No palpitations. No bleeding. Wants to b e discharged. MEDICATIONS: Reviewed. PHYSICAL EXAMINATION: VITAL SIGNS: Temperature 98.1, heart rate of 73, blood pressure 126/58, respiratory rate of 18. HEENT: Normocephalic, atraumatic. Pupils are equal. CARDIOVASCULAR: Irregularly irregular. Systolic murmur. PULMONARY: With no wheezes. GASTROINTESTINAL: Soft, nontender. EXTREMITIES: With trivial edema. NEUROLOGIC: Awake, responds appropriately. PSYCHIATRIC: Appears to be calm. LABORATORY DATA: WBC of 10.6, hemoglobin 11.4, platelets of 251. Sodium 139, potassium 3.8, BUN of 15, creatinine 0.52, glucose of 72. ASSESSMENT AND PLAN: 1. Atrial fibrillation, chronic. Heart rate under good control. 2. Bronchitis/chronic obstructive pulmonary disease. 3. Coagulopathy, currently improved, on anticoagulation with Eliquis. 4. History of seizure disorder. 5. History of congestive heart failure, currently stable. 6. Memory impairment. RECOMMENDATIONS: We will continue with the current cardiac care including anticoagulation with Eliq uis. Antibiotic as per internal medicine. Digoxin will be continued for heart rate control. Beta khris as tolerated will be continued. Dictated By: OMID SHAH/THEE Conf#: [id number] DID#: [id number] CC: HECTOR JOSHUA DO;*EndCC*
== END 2016-12-11 18:46 | disposition home or self-care (01) | DRG 871 ==
LOC: E/R 17:45 → PP2 21:03 → UNDOADMOB 21:03 → PP2 22:22 → OBSVTOIN 12-08 11:12
PROVIDERS: ADMIT Internal Medicine; ATTEND Internal Medicine
DX: A41.1 Sepsis due to other specified staphylococcus (principal); I50.43 Acute on chronic combined systolic (congestive) and diastolic (congestive) heart failure; D68.32 Hemorrhagic disorder due to extrinsic circulating anticoagulants; J44.0 Chronic obstructive pulmonary disease with (acute) lower respiratory infection; I11.0 Hypertensive heart disease with heart failure; Z79.02 Long term (current) use of antithrombotics/antiplatelets; F17.200 Nicotine dependence, unspecified, uncomplicated; T45.515A Adverse effect of anticoagulants, initial encounter; G40.909 Epilepsy, unspecified, not intractable, without status epilepticus; E78.5 Hyperlipidemia, unspecified; F41.8 Other specified anxiety disorders; J20.9 Acute bronchitis, unspecified; R65.20 Severe sepsis without septic shock; E87.6 Hypokalemia; N40.0 Benign prostatic hyperplasia without lower urinary tract symptoms; Z22.322 Carrier or suspected carrier of Methicillin resistant Staphylococcus aureus
CPT/HCPCS: 36415; 71010; 80048; 80053; 80162; 80202; 81001; 81003; 82043; 82803; 83735; 83880; 84100; 84155; 84300; 84439; 84443; 84484; 85025; 85610; 85730; 87040; 87081; 87400; 93005; 93306; 94664; 96365; 96367; G0378; J0692; J1940; J3370; J3475; J7030; J7050